=== PATIENT | female | born 1960 | race Caucasian/White ===

== ENCOUNTER → 2020-10-29 08:41 | Outpatient (BNVA) | payer OTHER, SELFPAY | PROVIDERS: Visit Provider Family Medicine | DX: E11.9 Type 2 diabetes mellitus without complications (principal); M06.9 Rheumatoid arthritis, unspecified | CPT/HCPCS: 80053; 83036 ==

== ENCOUNTER → 2020-11-18 14:00 | Outpatient (BNVA) | payer OTHER, SELFPAY | PROVIDERS: Visit Provider Nurse Practitioner Family | DX: Z12.4 Encounter for screening for malignant neoplasm of cervix (principal) | CPT/HCPCS: 88175 ==

== ENCOUNTER → 2021-09-03 09:47 | Outpatient (BNVA) | payer OTHER, SELFPAY | PROVIDERS: Visit Provider Nurse Practitioner Family | DX: I10 Essential (primary) hypertension (principal); E55.9 Vitamin D deficiency, unspecified | CPT/HCPCS: 80053; 80061; 82306; 84443; 85025 ==

== ENCOUNTER → 2022-03-09 10:58 | Outpatient (BNVA) | payer OTHER, SELFPAY | PROVIDERS: Visit Provider Internal Medicine Rheumatology | DX: Z79.899 Other long term (current) drug therapy (principal); M06.9 Rheumatoid arthritis, unspecified; Z11.59 Encounter for screening for other viral diseases; M05.79 Rheumatoid arthritis with rheumatoid factor of multiple sites without organ or systems involvement; Z71.85 Encounter for immunization safety counseling | CPT/HCPCS: 73130; 73562; 73630; 80076; 82306; 82565; 85025; 85651; 86200; 86431; 86480; 86704; 86803; 87340 ==

== ENCOUNTER → 2022-05-18 15:41 | Outpatient (BNVA) | payer OTHER, SELFPAY | PROVIDERS: Visit Provider Family Medicine | DX: R51.9 Headache, unspecified (principal); Z20.822 Contact with and (suspected) exposure to COVID-19 | CPT/HCPCS: 87426 ==

== ENCOUNTER → 2023-06-12 11:54 | Outpatient (BNVA) | payer OTHER, SELFPAY | PROVIDERS: Visit Provider Internal Medicine Rheumatology | DX: M05.79 Rheumatoid arthritis with rheumatoid factor of multiple sites without organ or systems involvement (principal); Z79.899 Other long term (current) drug therapy | CPT/HCPCS: 80076; 82565; 85025; 86140 ==

== ENCOUNTER → 2023-06-15 12:26 | Outpatient (BNVA) | payer OTHER, SELFPAY | PROVIDERS: Visit Provider Internal Medicine Rheumatology | DX: Z79.899 Other long term (current) drug therapy (principal); M05.79 Rheumatoid arthritis with rheumatoid factor of multiple sites without organ or systems involvement | CPT/HCPCS: 73502; 73562 ==

== ENCOUNTER → 2023-09-13 12:38 | Outpatient (BNVA) | payer SELFPAY | PROVIDERS: Visit Provider Internal Medicine Rheumatology | DX: Z79.899 Other long term (current) drug therapy (principal); M05.79 Rheumatoid arthritis with rheumatoid factor of multiple sites without organ or systems involvement; Z71.85 Encounter for immunization safety counseling | CPT/HCPCS: 36415; 80076; 82565; 85025; 86140 ==

== ENCOUNTER → 2023-10-05 10:11 | Outpatient (BNVA) | payer SELFPAY | PROVIDERS: PCP Family Medicine; Visit Provider Nurse Practitioner Family | DX: I10 Essential (primary) hypertension (principal) | CPT/HCPCS: 80053; 80061 ==

== ENCOUNTER 2023-10-09 06:17 | Emergency (ER) | payer SELFPAY ==
[2023-10-09 06:22] VITALS: BP 168/105; PULSE 61; RESP 16; TEMP 36.7; O2SAT 97
[2023-10-09 06:27] VITALS: BP 133/72; PULSE 62; RESP 14; O2SAT 99
--- NOTE | 2023-10-09 06:30 | ED_ITS ---
HPI - Extremity Problem General: Chief complaint: Extremity Injury, Lower Stated complaint: Left leg pain Time Seen by Provider: 10/09/23 06:19 Source: patient Mode of arrival: ambulatory History of Present Illness: 63-year-old female presents emergency ro om with complaint of pain radiating in the left lower extremity rating from the hip down to the knee then shift slightly anterior in the lower leg down to the foot. No falls no trauma no injuries no previous back surgeries no recent or historical traumas. No loss of bowel or bladder control no skin rash. Does have a history of rheumatoid arthritis. MD Complaint: extremity pain Onset (ago): day(s) Pain Consistency: constant Location: left and lower extremity Quality: sharp Radiation: distal Relieving factors: nothing Associated symptoms: Deny chest pain, fever(s) or rash Review of Systems Const: Denies: fever(s) or chills Card: Denies: chest pain Resp: Denies: dyspnea GI: Denies: abdominal pain : Denies: dysuria, urinary frequency or urinary urgency Musc: Denies: neck pain or back pain Skin/Breast: Denies: rash PFSH ED PFSH: Medical History Immunization counseling High risk medication use Seropositive rheumatoid arthritis of multiple sites Joint pain Stiffness in joint Depressed Hyperglycemia RA (rheumatoid arthritis) Surgical History No history of previous surgery Family History Father Cancer Brother Diabetes Other CAD (coronary artery disease) Chronic kidney disease (CKD) Family history of premature coronary artery disease Hypertension Rheumatoid arthritis Denies family history of Lupus Psoriatic arthritis Lung disease Stroke Social History Smoking and tobacco/nicotine status: never used tobacco/nicotine Quit status (tobacco/nicotine): has quit using Year quit tobacco: 25+ years Alcohol intake: never Physical Exam Const: COMMON NORMALS: no acute distress GENERAL APPEARANCE: cooperative and comfortable ORIENTATION/CONSCIOUSNESS: Yes awake, Yes oriented to person, Yes oriented to place and Yes oriented to time HENMT: COMMON NORMALS: normocephalic, atraumatic and hearing grossly normal bilaterally HEAD & SCALP: normocephalic and atraumatic : COMMON NORMALS: Yes no CVA tenderness BLADDER/KIDNEY EXAM: Yes no CVA tenderness Back/Pelvis: COMMON NORMALS: no CVA tenderness Extremity: COMMON NORMALS: normal to inspection, capillary refill normal, no clubbing, cyanosis or edema, no calf tenderness and no pedal edema OTHER: Examination of the left lower extremity +3-4 deep tendon reflexes at the patellar tendon. No skin changes negative Homans no sign of rash. Dorsum plantar flex strength 5 of 5 straight leg raising positive Neuro: SENSORIUM/ORIENTATION: Yes oriented to person, Yes oriented to place and Yes oriented to time Skin: COMMON NORMALS: no rashes or lesions noted GENERAL SKIN EXAM: no rashes or lesions noted Course Vital Signs: Vital signs: Vital Signs Temperature 98.0 F 10/09/23 06:22 Pulse Rate 62 10/09/23 06:27 Respiratory Rate 18 10/09/23 06:56 Blood Pressure 133/72 10/09/23 06:27 Pulse Oximetry 99 10/09/23 06:27 Oxygen Delivery Me thod Room Air 10/09/23 06:27 MDM - Extremity (Nontraumatic) Medical Decision Making Exam and history indicate left lumbar nerve root compression likely L4-5. No red flag symptoms or history. No recent trauma. Increase his steroid start Lyrica 75 p.o. twice daily hold Naprosyn and topical diclofenac as oral diclofenac as well as tizanidine. Follow-up with primary care if not improving may be candidate for advanced imaging. Medical Records I reviewed the patient's medical records. No radiology studies performed this visit Discharge Plan Discharge Patient Disposition: Home Clinical Impression: Acute left lumbar radiculopathy Condition: Stable Prescriptions: New tizanidine 4 mg tablet 4 mg PO Q6H PRN (Reason: muscle spasticity) Qty: 20 0RF Rx Instructions: do not exceed 3 doses per 24 hrs prednisone 20 mg tablet 20 mg PO TID Qty: 15 0RF Rx Instructions: 1 p.o. 3 times daily x3 days, 1 p.o. twice daily x2 days, 1 p.o. daily x2 days diclofenac sodium 75 mg tablet,delayed release (DR/EC) 75 mg PO Q12H PRN (Reason: pain) Qty: 20 0RF Lyrica 75 mg capsule 75 mg PO BID Qty: 60 0RF Discontinued prednisone 10 mg tablet See Rx Instructions PO .COMPLEX PRN (Reason: joint pain) Qty: 30 1RF Rx Instructions: take 20mg or 30mg daily for 5-7 days prn joint pain flare naproxen 500 mg tablet 500 mg PO DAILY PRN (Reason: pain) Qty: 30 0RF prednisone 10 mg tablet See Rx Instructions PO .COMPLEX PRN (Reason: joint pain) Qty: 30 1RF Rx Instructions: take 20mg or 30mg daily for 5-7 days prn joint pain flare No Action cholecalciferol (vitamin D3) 25 mcg (1,000 unit) capsule 1,000 unit PO DAILY Qty: 90 3RF da sherry worrell dutton davis PO tumeric PO melatonin 10 mg capsule 10 mg PO .HS acetaminophen [Tylenol Extra Strength] 500 mg tablet 1,000 mg PO BID diclofenac sodium 1 % gel 2 g topical QID Qty: 100 3RF Rx Instructions: apply to single elbow, wrist or hand; for hand includes palm/fingers/back of hand Enbrel 50 mg/mL (1 mL) syringe 50 mg SUBCUT .Q7days Qty: 4 3RF Rx Instructions: 340B dj hydrochlorothiazide 25 mg tablet 25 mg PO QAM Qty: 90 3RF clobetasol 0.05 % cream 1 applic topical BID Qty: 45 2RF sertraline 100 mg tablet 100 mg PO DAILY Qty: 90 3RF valacyclovir 500 mg tablet 500 mg PO DAILY PRN (Reason: rash) Qty: 7 2RF Rx Instructions: for 7 days Discharge Orders: Discharge ED (Routine); Ordered 10/09/23 Ordered By: Kojo Verdugo Referrals: Gato Brooke DO [Primary Care Provider] - Discharge Diet: Usual diet Discharge Activity: Increase activity as tolerated Patient Instructions: Lumbar Radiculopathy (ED), Opioid Safety, Pain Management Activity Restrictions/Additional Instructions: Thank you for choosing [facility] for your healthcare needs today. Please realize this is an emergency room and that we are providing you with a medical screening exam and this may not be complete and all inclusive of all the testing and or work up that you may need to determine your ailment or severity of your illness. It is very important that you follow up as instructed or that you return to the Emergency Department should you have concerns or if your condition changes or worsens in any way. Follow-up with your primary care doctor within the week to reevaluate if not improving you may be a candidate for advanced imaging. Coding Level of Care Code ED Claim Administrator for Marilee Licea
[2023-10-09 06:56] VITALS: RESP 18
[2023-10-09] MEDS: morphine 4 mg/mL SDV 1 mL IVP (06:56)
[2023-10-09] MEDS: orphenadrine 30 mg/mL Inj 2 mL 60 MG IVP (06:56)
[2023-10-09] MEDS: ketorolac 30 mg/mL INJ IVP (06:57)
[2023-10-09] MEDS: dexamethasone 10 mg/mL INJ IM (06:57)
== END 2023-10-09 08:23 | disposition home or self-care (01) ==
PROVIDERS: Emergency Provider Family Medicine; PCP Family Medicine
DX: M54.16 Radiculopathy, lumbar region (principal); Z87.891 Personal history of nicotine dependence
CPT/HCPCS: 96372; 96374; 96375; 99284; J1100; J1885; J2270; J2360

== ENCOUNTER 2023-11-03 11:38 | Outpatient (CLI) | payer SELFPAY ==
--- NOTE | 2023-11-03 11:45 | MR_ITS ---
WS: [id number] MRI LUMBAR SPINE NONCONTRAST TECHNIQUE: Sagittal T1, T2 and STIR imaging. Axial T1 and T2 imaging. CLINICAL INFORMATION: M53.87 - Other specified dorsopathies, lumbosacral region COMPARISON: None. FINDINGS: Counting performed from the craniocervical junction. 4 lumbar-type vertebral bodies. First sacral seg ment considered L5 for the purposes of this dictation. Recommend plain film correlation prior to surg ical intervention. T12-L1: Mild facet arthropathy. Spinal canal and foramen are patent. L1-L2: Mild annular bulging. Moderate facet arthropathy. Narrowing of the RIGHT subarticular recess. Spinal canal and foramen are patent. L2-L3: Mild annular bulging. Mild central canal stenosis. Narrowing of the subarticular recess bilate rally. Moderate facet arthropathy. Foramen are patent. L3-L4: Disc desiccation L3-4 with endplate degenerative changes. Mild central canal stenosis. Narrowi ng of the subarticular recess bilaterally. Moderate facet arthropathy. Mild RIGHT and no significant LEFT foraminal narrowing. Mild central canal stenosis. L4-L5: Mild disc bulging with slight effacement of ventral thecal sac. Narrowing of the subarticular recess. Moderate facet arthropathy. Foramen are patent. L5-S1: First sacral segment considered L5 with a rudimentary disc space. Spinal canal and foramen are patent. Visualized pelvic bony structures: Normal. Paravertebral soft tissues: Normal. Small bilateral renal cysts. IMPRESSION: 1. Counting performed from the craniocervical junction. 4 lumbar type vertebral bodies with first sa cral segment considered L5 for the purposes of this dictation. Recommend plain film correlation prior to surgical intervention. 2. Mild lumbar curve. No acute compression. No high-grade central canal stenosis. 3. Mild central canal stenosis L2-3 with narrowing of the subarticular recess bilaterally. Moderate facet arthropathy. 4. Disc desiccation L3-4 with mild disc bulging and mild central canal stenosis. Slight impingement subarticular recess bilaterally. Mild RIGHT foraminal narrowing. 5. Slight narrowing of the RIGHT L1-2 subarticular recess. 6. Moderate facet arthropathy L1-L2 L2-L3 and L3-L4.
== END 2023-11-03 11:39 | disposition home or self-care (01) ==
PROVIDERS: PCP Family Medicine; Visit Provider Specialist
DX: M53.87 Other specified dorsopathies, lumbosacral region (principal); M51.36 Other intervertebral disc degeneration, lumbar region; M48.061 Spinal stenosis, lumbar region without neurogenic claudication; M47.816 Spondylosis without myelopathy or radiculopathy, lumbar region
CPT/HCPCS: 72148

== ENCOUNTER → 2024-09-27 10:28 | Outpatient (BNVA) | payer MEDICARE, SELFPAY | PROVIDERS: PCP Family Medicine; Visit Provider Nurse Practitioner Family | DX: F32.9 Major depressive disorder, single episode, unspecified (principal); K21.9 Gastro-esophageal reflux disease without esophagitis; Z12.11 Encounter for screening for malignant neoplasm of colon; I10 Essential (primary) hypertension; E55.9 Vitamin D deficiency, unspecified; Z79.899 Other long term (current) drug therapy | CPT/HCPCS: 80053; 80061; 82306 ==

== ENCOUNTER → 2024-10-14 11:20 | Outpatient (BNVA) | payer MEDICARE, SELFPAY | PROVIDERS: PCP Family Medicine; Visit Provider Student in an Organized Health Care Education/Training Program | DX: Z12.11 Encounter for screening for malignant neoplasm of colon (principal); R12 Heartburn | CPT/HCPCS: 99204 ==

== ENCOUNTER → 2025-02-11 15:15 | Outpatient (BNVA) | payer MEDICARE, SELFPAY | PROVIDERS: PCP Family Medicine; Visit Provider Nurse Practitioner Family | DX: M25.561 Pain in right knee (principal); G89.29 Other chronic pain | CPT/HCPCS: 73562 ==

== ENCOUNTER 2025-02-21 09:18 | Outpatient (CLI) | payer MEDICARE, SELFPAY ==
--- NOTE | 2025-02-21 09:30 | MR_ITS ---
WS: [id number] MRI RIGHT KNEE HISTORY: M25.561 - Pain in right knee COMPARISON: Radiograph 02/11/2025 Anterior cruciate ligament: Intact. Posterior cruciate ligament: Intact. Medial collateral ligament: Fluid on both sides of the MCL but no tear. Posterior lateral corner structures: Intact. Medial menisci: Mild intrasubstance degeneration in the posterior horn, increased signal is predominant towards the meniscal root. Increased T2 signal with loss of the normal appearing attachment of the meniscus to the superior articular surface. Loss of the normal contour of the posterior horn towards the capsule. There does appear to be a tear in the periphery of the posterior medial meniscus. Lateral meniscus: Normal. Extensor mechanism: Distal quadriceps tendon and patellar tendons are intact. Fluid and soft tissue: Small suprapatellar joint effusion. Moderate-sized Gonzalez's cyst with adjacent free fluid consistent with partial rupture of the Gonzalez's cyst. There is a small amount of fluid extending into the intercondylar notch. Closely associated with the posterior lateral meniscus and the PCL. Osseous and articular structures: Patellofemoral compartment: Focal chondromalacia medial patellar facet. There is a very small amount of marrow edema in the medial most patellar facet. Medial compartment: Mild narrowing of the medial compartment. Cartilage is preserved. There is a small amount of marrow edema along the tibial plateau. Lateral compartment: Minimal narrowing. Short segment defect along the central tibial plateau. No underlying marrow edema or fracture. MR/MR knee RT wo con* [id number] IMPRESSION: 1. Focal tear posterior horn medial meniscus towards the meniscal root. Tear i s within the peripheral third of the meniscus at the capsular attachment. 2. Small suprapatellar joint effusion. 3. Moderate-sized Gonzalez's cyst with partial rupture. 4. Focal chondromalacia medial patellar facet. 5. Very small amount of marrow edema along the medial tibial plateau and the m edial patella. 6. Cartilaginous defect central lateral tibial plateau.
== END 2025-02-21 09:19 | disposition home or self-care (01) ==
PROVIDERS: PCP Family Medicine; Visit Provider Nurse Practitioner Family
DX: S83.241A Other tear of medial meniscus, current injury, right knee, initial encounter (principal); G89.29 Other chronic pain; X58.XXXA Exposure to other specified factors, initial encounter; M25.461 Effusion, right knee; M22.41 Chondromalacia patellae, right knee; M94.8X6 Other specified disorders of cartilage, lower leg; R93.6 Abnormal findings on diagnostic imaging of limbs; M71.21 Synovial cyst of popliteal space [Baker], right knee
CPT/HCPCS: 73721

== ENCOUNTER → 2025-03-31 09:40 | Outpatient (BNVA) | payer MEDICARE, SELFPAY | PROVIDERS: PCP Family Medicine; Visit Provider Specialist | DX: M25.561 Pain in right knee (principal); G89.29 Other chronic pain | CPT/HCPCS: 20610; 73560; 73565; 99204; J7318 ==

== ENCOUNTER 2025-09-02 09:26 | Outpatient (CLI) | payer MEDICARE, SELFPAY ==
--- NOTE | 2025-09-02 09:20 | MM_ITS ---
WS: [id number] BILATERAL 3D TOMOSYNTHESIS DIGITAL SCREENING MAMMOGRAPHY WITH CAD CLINICAL INFORMATION: SCREENING HISTORY: Screening mammogram. No current complaints. COMPARISON: New baseline TECHNIQUE: Bilateral CC and MLO views. FINDINGS: The breasts are composed of heterogeneous fibroglandular density tissue, which can limit the detection of small underlying mass lesions. No suspicious mass, asymmetry, calcifications, or architectural distortion. No evidence of malignancy. MM/MM scr tomosynthesis [id number] IMPRESSION: DENSITY: The breasts are heterogeneously dense, which may obscure small masses. BI-RADS: 1 - Negative FOLLOW UP: 1 Year Follow-up Recommend return to annual screening mammography.
== END 2025-09-02 09:27 | disposition home or self-care (01) ==
LOC: MOBLMAM 09:29
PROVIDERS: PCP Family Medicine; Visit Provider Family Medicine
DX: Z12.31 Encounter for screening mammogram for malignant neoplasm of breast (principal); R92.333 Mammographic heterogeneous density, bilateral breasts; R92.323 Mammographic fibroglandular density, bilateral breasts
CPT/HCPCS: 77063; 77067

== ENCOUNTER → 2025-09-15 09:00 | Outpatient (BNVA) | payer MEDICARE, SELFPAY | PROVIDERS: PCP Nurse Practitioner Family; Visit Provider Nurse Practitioner Family | DX: I10 Essential (primary) hypertension (principal); E55.9 Vitamin D deficiency, unspecified | CPT/HCPCS: 80053; 80061; 82306 ==

== ENCOUNTER → 2025-09-17 09:30 | Outpatient (BNVA) | payer MEDICARE, SELFPAY | PROVIDERS: PCP Nurse Practitioner Family; Visit Provider Nurse Practitioner Family | DX: Z12.4 Encounter for screening for malignant neoplasm of cervix (principal) | CPT/HCPCS: 88175 ==

== ENCOUNTER 2025-10-14 14:13 | Outpatient (CLI) | payer MEDICARE, SELFPAY ==
--- NOTE | 2025-10-14 14:30 | XR_ITS ---
WS: [id number] SCREENING DEXA SCAN [employer] CLINICAL INFORMATION: Z78.0 - Asymptomatic menopausal state COMPARISON: None. FINDINGS: The L1-L4 bone mineral density measures 1.351 g/cm2. This corresponds to a T score score of 1.4 and Z score of 2.9. Left femoral neck bone mineral density measures 0.996 g/cm2. This corresponds to a T score of -0.1 and Z score of 1.1. Right femoral neck bone mineral density measures 1.002 g/cm2. This corresponds to a T score 0.0of and Z score of 1.1. Mean femoral neck bone mineral density measures 0.999 g/cm2. This corresponds to a T score of -0.1 and Z score of 1.1. XR/XR DEXA axial skeleton* [id number] IMPRESSION: Normal bone mineralization lumbar spine. Normal bone density femoral necks. Patient's FRAX calculated 10 year probability for major osteoporotic fracture i s 10.4% and osteoporotic hip fracture is 1.0%.
== END 2025-10-14 14:14 | disposition home or self-care (01) ==
LOC: RAD 14:14
PROVIDERS: PCP Nurse Practitioner Family; Visit Provider Nurse Practitioner Family
DX: Z13.820 Encounter for screening for osteoporosis (principal); Z78.0 Asymptomatic menopausal state
CPT/HCPCS: 77080